=== PATIENT | male | born 2005 | race Caucasian/White ===

== ENCOUNTER 2024-02-07 19:11 | Emergency (ER) | payer OTHER, SELFPAY ==
[2024-02-07 19:15] VITALS: BP 118/78; PULSE 76; O2SAT 99
[2024-02-07 19:24] VITALS: BP 149/70; PULSE 80; RESP 16; TEMP 36.8; O2SAT 98; BMI 17.6
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
[2024-02-07] MEDS: Acetaminophen 325 MG TABLET 975 MG PO (20:14)
[2024-02-07] MEDS: Ibuprofen 400 MG TABLET PO (20:14)
[2024-02-07 20:35] VITALS: BP 140/61; PULSE 81; RESP 16; TEMP 36.8; O2SAT 97
== END 2024-02-07 20:36 | disposition home or self-care (01) ==
PROVIDERS: Emergency Provider Emergency Medicine
DX: S16.1XXA Strain of muscle, fascia and tendon at neck level, initial encounter (principal); S29.012A Strain of muscle and tendon of back wall of thorax, initial encounter; V43.62XA Car passenger injured in collision with other type car in traffic accident, initial encounter; Y93.89 Activity, other specified; Y92.414 Local residential or business street as the place of occurrence of the external cause; Y99.9 Unspecified external cause status
CPT/HCPCS: 99283; 99284